=== PATIENT | female | born 1970 | race Caucasian/White ===

== ENCOUNTER 2019-12-29 09:47 | Day surgery (SDC) | payer OTHER ==
[2019-12-28 11:02] VITALS: BMI 39.5
[2019-12-28 12:35] LABS: Hemoglobin 13.5 g/dL (12.0-16.0); Mean Corpuscular HGB CONC 32.8 g/dL (32.0-36.0); Mean Corpuscular Hemoglobin 29.8 pg (27.0-31.0); Mean Corpuscular Volume 90.7 fL (78.0-98.0); Mean Platelet Volume 9.1 fL (7.4-10.4); Platelet Count 261 thou/uL (130-400); RBC Distribution Width 11.8 % (11.5-14.5); Red Blood Cell (RBC) Count 4.55 mill/uL (4.20-5.40); White Blood Cell (WBC) Count 5.8 thou/uL (4.8-10.8)
[2019-12-28 12:38] LABS: BHCG - Serum Negative (NEGATIVE); Pregs Control Background? CLEAR/WHITE (CLR/WHITE); Pregs Control Bar Appear? YES (CONTROL BAR)
--- NOTE | 2019-12-29 10:19 | HP ---
She is scheduled for outpatient diagnostic laparoscopy for 12/29/2019. HISTORY OF PRESENT ILLNESS: Ms. Wells is a 49-year-old white female, who has a history of previous endometrial ablation and laparoscopic Filshie clip placement approximately in 2010. She gives a history of onset of severe right-sided buttock pain starting on October 17, 2019. She states this occurred when she was walking her usual 2 mile she does daily. It was described as radiating down her leg and also had some associated paleness she said in the right leg compared to her left leg. She had an extensive imaging workup through the orthopedic colleagues with an MRI of the lumbosacral area along with a CT scan of the abdomen and pelvis and even an angiogram of the femoral vessels. No specific findings were noted. She has undergone regimen of routine treatments for steroid injections in the piriformis muscle and SI joints with no relief. The patient has been very concerned that the Filshie clips that were placed in 2010 may have possibly migrated and is causing some of the pain. She is basically at her wits' end and wanted to have this pelvis further evaluated and also removal of the Filshie clips. On x-ray imaging, it appeared one of the clips on the left tube had fallen off and located in the posterior cul-de-sac. The right clip still seems to be in place on the right fallopian tube. We did do a scout executive pelvic ultrasound in my office on 12/15/2019. The uterus was measuring 7.3 x 5.5 x 4 cm and both right and left ovaries were normal in appearance. She did have some small fluid collection in the uterine cavity consistent with some post ablation changes, but no hydrosalpinx was seen on the fallopian tubes or abnormal fluid collections in the fallopian tubes. She had ovulatory-appearing left follicle at 2 cm. PAST MEDICAL HISTORY: Otherwise, negative. PAST SURGICAL HISTORY: Endometrial ablation, tubal ligation with Filshie clips in 11/2010. CURRENT MEDICATIONS: Methocarbamol 750 mg tablet and Motrin 200 mg tablet one every 6 hours as needed for pain. ALLERGIES: SHE HAS NO KNOWN DRUG ALLERGIES. SOCIAL HISTORY: Nonsmoker. No excessive alcohol use. OB HISTORY: She is a G3, P3, vaginal delivery x3. FAMILY HISTORY: Noncontributory. She specifically denies any cyclical pain in the pelvis or abnormal spotting or bleeding or menstrual cramping like pain. PHYSICAL EXAMINATION: VITAL SIGNS: On exam, her height is 5 feet 8 inches, weight 260 with a BMI of 39.5. Blood pressure 132/88, pulse 96, and respirations 18. HEENT: Within normal limits. CHEST: Clear to auscultation. HEART: Regular rate and rhythm. S1 and S2 heart sounds. No murmurs, rubs, or gallops. ABDOMEN: Soft, nontender, and nondistended with no palpable masses. PELVIC: Vulva and vagina had no lesions. Cervix had no lesions. There was no cervical motion tenderness. Uterus was nontender. No masses. Normal size. Adnexa nontender. No masses. Specifically, there was no posterior cul-de-sac pain or adnexal pain or uterine pain on exam. The levator floor muscles were also palpated and they were nontender on exam. Bladder and urethra were normal. ASSESSMENT: This is a 49-year-old white female with recent severe right buttock pain and lower extremity pain with negative workup thus far. The patient is very concerned of Filshie clips possible migration into a neurovascular area. There has been no indication on imaging that this has occurred, but vascular studies have been negative. No obvious nerve compression was seen on the MRI. It would be fitting to proceed with diagnostic robotic laparoscopy to further evaluate her pelvis due to her pain concerns and would also like to have the Filshie clips removed, which we can accomplish this at that time. Risks and benefits of procedure have been discussed in detail. She is set for surgery on 12/29. Job ID: [id number]
[2019-12-29] MEDS ORDERED: Gabapentin 300 MG CAP ONE (10:26)
[2019-12-29] MEDS ORDERED: CeleCOXIB 100 MG CAP ONE (10:26)
[2019-12-29] MEDS ORDERED: Bupivacaine PF 0.5% 30 ML VIAL ONE (10:40)
[2019-12-29] MEDS ORDERED: Lidocaine 1% PF 5 ML VIAL ONE (10:48)
[2019-12-29] MEDS ORDERED: PROPOFOL 200 MG/20 ML VIAL ONE (10:48)
[2019-12-29] MEDS ORDERED: Dexamethasone 20 MG/5 ML VIAL ONE (10:48)
[2019-12-29] MEDS ORDERED: Ondansetron PF 4 MG/2 ML Vial ONE (10:48)
[2019-12-29] MEDS ORDERED: Rocuronium Bromide 10 MG/ML (10ML VIAL) ONE (10:48)
[2019-12-29] MEDS ORDERED: Ketorolac Tromethamine 30 MG/ML VIAL ONE (10:48)
[2019-12-29] MEDS ORDERED: HYDROmorphone 0.5 MG/0.5 ML SYRINGE ONE (10:55)
[2019-12-29] MEDS ORDERED: Fentanyl 100 MCG/2 ML VIAL ONE (10:55)
[2019-12-29] MEDS ORDERED: SUGAMMADEX SODIUM 500 MG/5 ML VIAL ONE (10:56)
[2019-12-29] MEDS ORDERED: HYDROcodone/Acetaminophen 5/325 mg Tablet ONE (13:38)
[2019-12-29] MEDS ORDERED: Promethazine HCl 25 MG/ML VIAL ONE (14:47)
--- NOTE | 2019-12-29 20:12 | OP ---
DATE OF PROCEDURE: 12/29/2019 PREOPERATIVE DIAGNOSES: 1. A 49-year-old white female with prior Filshie clip placement tubal and endometrial ablation approximately 9 years prior with now having a right-sided buttock and low back pain with radiation to right leg. 2. The patient concerns in regard to Filshie clips and desires removal. 3. Some intermittent right lower quadrant pain. POSTOPERATIVE DIAGNOSES: 1. A 49-year-old white female with prior Filshie clip placement, tubal and endometrial ablation approximately 9 years prior with now having a right-sided buttock and low back pain with radiation to right leg. 2. The patient concerns in regard to Filshie clips and desires removal. 3. Some intermittent right lower quadrant pain. PROCEDURE PERFORMED: Robotic diagnostic laparoscopy with removal of bilateral Filshie clips. ANESTHESIA: General endotracheal. ESTIMATED BLOOD LOSS: Less than 5 mL. COMPLICATIONS: None. COUNTS: Correct x2. FINDINGS: 1. Uterus was noted to have a small posterior fundal intramural fibroid approximately 1.5 cm, otherwise normal appearance. 2. The left Filshie clip was noted to be freely flowed in the posterior cul-de-sac after the left tube had been overtime. Time degenerated disconnection in the mid segment. The right Filshie clip was in some filmy adhesions in the mesosalpinx just before with auto-transected right fallopian tube. This was status post excision. 3. Bilateral normal-appearing full ovaries. Inspection of the pelvic sidewall showed normal bilateral ureteral peristalsis. No retroperitoneal masses or abnormal visualization of iliac vessels noted on laparoscopic evaluation. Normal-appearing rectum and sigmoid colon. DISPOSITION: Recovery room, then plan for discharge home. DESCRIPTION OF PROCEDURE: The patient previously received informed consent in regard to surgery. She was taken back to the operating room, where she received a general endotracheal anesthetic agent without complications. She was placed in dorsal lithotomy position. Hebert catheter was placed after the patient had been sterilely prepped. A side-arm speculum was placed in vagina. The anterior lip of the cervix was grasped with single-tooth tenaculum. The uterus sounded to 7 cm. It was then dilated to a small Hegar dilators and then a Hulka uterine manipulator was placed. The tenaculum and speculum were removed. Attention was then turned to the abdomen, where perspective trocar sites were infiltrated with 0.5% Marcaine with epinephrine. An 8-mm infraumbilical incision was made. Veress needle was entered into the peritoneal cavity. The patient's pressure was noted to be less than 5 mmHg. Abdomen was insufflated to the patient's pressure of 15. Approximately 5 L of carbon dioxide gas was used for distention. The Veress needle was then removed. An 8-mm trocar was then placed, and laparoscope was introduced through the 8-mm trocar sleeve confirming proper entry. Additional bilateral lower quadrant, right and left 8 mm trocars were then placed under laparoscopic guidance. The patient was placed in Trendelenburg position and the robot was docked. I then broke scrub and proceeded to carry out the procedure from the operative console. My safety assistant remained at the bedside. The uterus was elevated from the pelvis. The posterior cul-de-sac was inspected and the freely floating Filshie clip was noted. This was grasped with bipolar fenestrated cautery device and placed in the anterior cul-de-sac. The right fallopian tube was identified and the Filshie clip had eroded through the tube in its usual fashion and was in some filmy adhesions in the right mesosalpinx. The Filshie clip was grasped by the bipolar fenestrated cautery and the monopolar scissors were utilized to cauterize and excise the Filshie clip from the mesosalpinx. Hemostasis was confirmed. Again, this was placed in the anterior cul-de-sac. The pelvis was inspected with the previously mentioned findings. She did have some more obvious varicosities in the right-sided mesosalpinx in the left, but no large varicosities noted in the iliac vessels. Once the previous documented findings were noted, the surgery was then completed and the Filshie clips were removed by undocking the right side monopolar scissors and then exchanging this up placing this a atraumatic grasper. My safety assistant was handed the Filshie clips and the Filshie clips were removed through the right lower quadrant 8-mm trocar sleeve intact. The rest of the robot was then undocked and then the trocar sleeves were removed. A deep stitch of 0 Vicryl was placed in the infraumbilical fascial defect. The remainder of the sites were closed with 4-0 Monocryl subcuticular and then Dermabond. The Hulka uterine manipulator was removed. Hemostasis was confirmed. The patient was awakened from anesthesia and transferred to recovery room in stable condition. Job ID: [id number]
== END 2019-12-29 16:50 | disposition home or self-care (01) ==
LOC: SDC 09:47
PROVIDERS: ATTEND Obstetrics & Gynecology
PROC: 0UPH4YZ Removal of Other Device from Vagina and Cul-de-sac, Percutaneous Endoscopic Approach (ICD-10-PCS; principal; 2019-12-29)
DX: T83.428A Displacement of other prosthetic devices, implants and grafts of genital tract, initial encounter (principal); D25.1 Intramural leiomyoma of uterus; G89.29 Other chronic pain; R10.2 Pelvic and perineal pain; Z79.899 Other long term (current) drug therapy; Z98.51 Tubal ligation status; Z98.890 Other specified postprocedural states
CPT/HCPCS: 36415; 84703; 85027; 86850; 86900; 86901; J0690; J1100; J1170; J1885; J2001; J2405; J2550; J2704; J3010; S0020